=== PATIENT | male | born 1950 | race Caucasian/White ===

== ENCOUNTER 2017-12-30 17:48 | Outpatient (CLI) | payer MEDICARE, OTHER | END 2017-12-30 23:59 | disposition critical access hospital (66) | LOC: EMS 17:48 | PROVIDERS: ATTEND Surgery | DX: R42 Dizziness and giddiness (principal); R20.0 Anesthesia of skin; R61 Generalized hyperhidrosis | CPT/HCPCS: A0425; A0427 ==

== ENCOUNTER 2017-12-30 17:59 | Emergency (ER) | END 2017-12-30 22:13 | disposition home or self-care (01) ==

== ENCOUNTER 2021-09-21 13:26 | Day surgery (SDC) | payer MEDICARE, OTHER ==
[~2021-09-21 13:26] MED LIST: LACTATED RINGERS 1,000 ML IV ONE
[2021-09-21] MEDS ORDERED: PROPOFOL 500 MG/50 ML 500 MG/50 ML VIAL ONE (14:24)
--- NOTE | 2021-09-21 14:28 | ANESTHESIA ---
Pre-Anesthesia VS, & Labs - Diagnosis screening - Procedure colonoscopy Vital Signs: Temp Pulse Resp BP Pulse Ox 36.6 C 54 L 16 154/70 H 98 09/21/21 13:41 09/21/21 13:41 09/21/21 13:41 09/21/21 13:41 09/21/21 13:41 Height: 5 ft 8 in Weight (kg): 92.9 kg Body Mass Index: 31.1 BMI Classification: Obese - NPO >8 hours - Lab Results Lab results reviewed: Yes Home Medications and Allergies Home Medications: Ambulatory Orders Atorvastatin [Lipitor] 40 mg PO DAILY 09/20/21 Telmisartan/Hydrochlorothiazid [Micardis Hct 40-12.5 mg Tablet] 40 mg PO DAILY 09/20/21 amLODIPine [Norvasc] 5 mg PO DAILY 09/20/21 Atorvastatin [Lipitor] 40 mg PO DAILY 09/20/21 Telmisartan/Hydrochlorothiazid [Micardis Hct 40-12.5 mg Tablet] 40 mg PO DAILY 09/20/21 amLODIPine [Norvasc] 5 mg PO DAILY 09/20/21 Allergies/Adverse Reactions: Allergies Allergy/AdvReac Type Severity Reaction Status Date / Time amoxicillin Allergy Respiratory Verified 09/21/21 13:51 clindamycin Allergy Respiratory Verified 09/21/21 13:51 Anes History & Medical History - Anesthetic History Anesthesia Complications: reports: No previous complications Family history of Anesthesia Complications: Denies Family history of Malignant Hyperthermia: Denies - Medical History Cardiovascular: reports: Hypertension, High cholesterol Pulmonary: reports: None Gastrointestinal: reports: None Urinary: reports: None Musculoskeletal: reports: Osteoarthritis Endocrine/Autoimmune: reports: None Skin: reports: None Smoking Status: Never smoker Psychosocial: reports: Alcohol (1 drink per night) - Surgical History General: reports: Other Dermatologic: reports: Skin cancer surgery Exam General: Alert, Oriented x3, Cooperative, No acute distress Dental: WNL Mouth Openin Fingerbreadth Neck Mobility: Normal Mallampati classification: II Plan Anesthesia Type: General, Total IV Consent for Procedure(s) Verified and Reviewed: Yes Code Status: Attempt Resuscitation ASA classification: 2-Mild systemic disease Is this case an emergency?: No
[2021-09-21] MEDS ORDERED: GLYCOPYRROLATE 1 MG/5 ML VIAL ONE (14:36)
[2021-09-21] MEDS ORDERED: LACTATED RINGERS 1,000 ML IV ONE (14:58)
--- NOTE | 2021-09-21 15:13 | ANESTHESIA POST OP EVALUATION ---
Anesthesia Post Eval - Post Anesthesia Eval Vitals: Last Vital Signs Temp 36 C L 09/21/21 14:50 Pulse 61 09/21/21 14:50 Resp 16 09/21/21 14:50 BP 102/62 09/21/21 14:50 Pulse Ox 100 09/21/21 14:50 CV Function Including HR & BP: Stable Pain Control: Satisfactory Nausea & Vomiting: Negative Mental Status: Baseline Respiratory Status: Airway Patent Hydration Status: Satisfactory Anesthesia Complications: None
[2021-09-21 15:22] VITALS: BP 138/68
== END 2021-09-21 13:27 | disposition home or self-care (01) ==
LOC: SDS 13:26
PROVIDERS: ATTEND Surgery
PROC: 0DBL8ZZ Excision of Transverse Colon, Via Natural or Artificial Opening Endoscopic (ICD-10-PCS; 2021-09-21)
PROC: 0DBP8ZZ Excision of Rectum, Via Natural or Artificial Opening Endoscopic (ICD-10-PCS; principal; 2021-09-21 14:30)
DX: Z12.11 Encounter for screening for malignant neoplasm of colon (principal); D12.3 Benign neoplasm of transverse colon; K62.1 Rectal polyp; K64.8 Other hemorrhoids; E66.9 Obesity, unspecified; Z68.31 Body mass index [BMI] 31.0-31.9, adult
CPT/HCPCS: 45380; J7120

== ENCOUNTER 2023-01-29 12:09 | Outpatient (CLI) | payer MEDICARE, OTHER ==
--- NOTE | 2023-01-29 14:14 | XRAY Report ---
PROCEDURE: Hip w/Pelvis 2-3V LT INDICATIONS: PAIN IN L HIP TECHNIQUE: AP pelvis with lateral view(s) of the left hip(s). COMPARISON: None. FINDINGS: Bones: No fractures or dislocations. No suspicious bony lesions. Bilateral hip degenerative change, left greater than right. Left hip degenerative change is moderately severe. Soft tissues: No suspicious soft tissue calcifications or masses. IMPRESSION: Moderately severe degenerative arthritis of the left hip. Reviewed by: Vidal Kelsey MD on 01/29/2023 2:13 PM PDT Approved by: Vidal Kelsey MD on 01/29/2023 2:13 PM PDT Station ID: [id number]
== END 2023-01-29 12:10 | disposition home or self-care (01) ==
LOC: DI 12:09
PROVIDERS: ATTEND Internal Medicine
DX: M16.12 Unilateral primary osteoarthritis, left hip (principal)

== ENCOUNTER 2024-01-18 08:06 | Outpatient (CLI) | payer MEDICARE, OTHER ==
[2024-01-18 08:31] LABS: BASOPHILS % (AUTO) 0.4 %; EOSINOPHILS # (AUTO) 0.1 10^3/uL (0.0-0.7); EOSINOPHILS % (AUTO) 1.3 %; HCT - HEMATOCRIT 41.6 % (42.0-52.0); HGB - HEMOGLOBIN 13.9 g/dL (14.0-18.0); LYMPHOCYTES # (AUTO) 1.6 10^3/uL (1.5-3.5); LYMPHOCYTES % (AUTO) 29.4 %; MEAN CORPUSCULAR HEMOGLOBIN 28.4 pg (27.0-31.0); MEAN CORPUSCULAR HGB CONC 33.4 g/dL (32.0-36.0); MEAN CORPUSCULAR VOLUME 85.1 fL (80.0-94.0); MEAN PLATELET VOLUME 9.3 fL (7.4-11.4); MONOCYTES # (AUTO) 0.4 10^3/uL (0.0-1.0); MONOCYTES % (AUTO) 8.1 %; NEUTROPHILS # (AUTO) 3.2 10^3/uL (1.5-6.6); NEUTROPHILS % (AUTO) 60.6 %; PLT - PLATELET COUNT 235 10^3/uL (130-450); RED BLOOD COUNT 4.89 10^6/uL (4.70-6.10); RED CELL DISTRIBUTION WIDTH 13.4 % (12.0-15.0); WHITE BLOOD COUNT 5.3 x10^3/uL (4.8-10.8)
[2024-01-18 08:32] LABS: BILIRUBIN,URINE NEGATIVE (NEGATIVE); GLUCOSE, URINE (UA) NEGATIVE (NEGATIVE); KETONES,URINE (UA) NEGATIVE (NEGATIVE); LEUKOCYTE ESTERASE, URINE NEGATIVE (NEGATIVE); NITRITE,URINE NEGATIVE (NEGATIVE); OCCULT BLOOD,URINE NEGATIVE (NEGATIVE); PROTEIN,URINE NEGATIVE (NEGATIVE); UROBILINOGEN,URINE 0.2 (NORMAL) E.U./dL (NORMAL)
[2024-01-18 08:38] LABS: CALCIUM 9.4 mg/dL (8.5-10.3); CREATININE 1.1 mg/dL (0.6-1.3); POTASSIUM 5.3 mmol/L (3.5-4.5)
[2024-01-18 08:48] LABS: CLARITY,URINE CLEAR (CLEAR)
[2024-01-18 08:51] LABS: BACTERIA,URINE Rare /HPF (None Seen); RBC,URINE None Seen /HPF (0-5); SQUAMOUS EPITHELIAL CELL,UR RARE Squamous (<= Few); WBC,URINE 0-3 /HPF (0-3)
[2024-01-18 10:40] LABS: ESTIMATED AVERAGE GLUCOSE 108 mg/dL (70-100); HEMOGLOBIN A1c% 5.4 % (4.27-6.07)
== END 2024-01-18 08:07 | disposition home or self-care (01) ==
LOC: LAB 08:06
PROVIDERS: ATTEND Orthopaedic Surgery
DX: Z01.818 Encounter for other preprocedural examination (principal); R73.9 Hyperglycemia, unspecified; N39.0 Urinary tract infection, site not specified
CPT/HCPCS: 36415; 80048; 81001; 83036; 85025; 87086; 93005

== ENCOUNTER 2024-02-15 07:46 | Outpatient (CLI) | payer MEDICARE, OTHER ==
[2024-02-15 08:02] LABS: POTASSIUM 4.3 mmol/L (3.5-4.5)
== END 2024-02-15 07:47 | disposition home or self-care (01) ==
LOC: LAB 07:46
PROVIDERS: ATTEND Orthopaedic Surgery
DX: E87.8 Other disorders of electrolyte and fluid balance, not elsewhere classified (principal)
CPT/HCPCS: 36415; 80051